=== PATIENT | female | born 1985 | race Asian ===

== ENCOUNTER 2022-12-08 12:05 | Emergency (ER) | payer BC, SELFPAY ==
[2022-12-08 12:13] VITALS: BP 113/76; PULSE 103; RESP 18; TEMP 36.8; O2SAT 100; BMI 34.0
--- NOTE | 2022-12-08 12:49 | ED_ITS ---
HPI - General Adult General Date Seen: 12/08/22 Chief complaint: Sore Throat Stated complaint: needs throat swap Time Seen by Provider: 12/08/22 12:06 Source: patient and family Mode of arrival: ambulatory Limitations: no limitations History of Present Illness HPI narrative: Patient is a 37-year-old female presents here for evaluation of a sore throat and low-grade fevers she has had for the last 3-4 days, her fevers broke today and she is down now normal, she is still taking some acetaminophen, she has had trouble swallowing for couple days, able to drink fluids fine but solids have b een more of an issue. She also had some mild nausea and vomited up a couple times yesterday and the day before. Fever was was a high is 102. She presents here with her , who also has a sore throat. Denies any rashes, any significant cough, she is on no other medications, no known allergies. Related Data Previous Rx's Medication Instructions Recorded prednisone 20 mg tablet 20 mg PO BID #10 tabs 12/08/22 Allergies Allergy/AdvReac Type Severity Reaction Status Date / Time No Known Drug Allergies Allergy Verified 12/08/22 12:15 Review of Systems Status of ROS: Reports: 10 or more systems reviewed and unremarkable except as noted in History and below PFSH [facility] Social History Smoking Status: Never smoker Exam Narrative: Exam Narrative: On examination she has some mild redness of the throat, she has a very patent airway with no evidence of any abnormality. Uvula appears normal, lymphadenopathy 1 to 2+ bilaterally, her neck is supple absence of meningismus, her TMs are normal, with a little bit of serous otitis media. Chest is good air entry red bilaterally with no wheezes crackles noted, heart sounds are normal,abdomen is soft, no evidence of any tenderness on palpation, no organomegaly. Normal bowel sounds. skin reveals no petechiae rashes, Const: Vital Signs, click to edit/add: Vital Signs - 24 hr 12/08/22 12:13 Temperature 98.3 F Pulse Rate [Right Pulse Oximeter] 103 H Respiratory Rate 18 Blood Pressure [Ri ght Upper Arm] 113/76 Pulse Oximetry 100 Oxygen Delivery Me thod Room Air Documenting provider has reviewed patient's vital signs: yes Course Course Hospital Course: As I discussed with them we will treat with prednisone, for the sore throat if worsening any to be res seen, I discussed complications of prednisone with them, and this was sent to the pharmacy. Vital Signs Vital signs: Initial Vital Signs Temperature 98.3 F 12/08/22 12:13 Temperature Source Temporal Artery Scan 12/08/22 12:13 Pulse Rate 103 H 12/08/22 12:13 Respiratory Rate 18 12/08/22 12:13 Blood Pressure 113/76 12/08/22 12:13 Blood Pressure Mean 88 12/08/22 12:13 Blood Pressure Position Sitting 12/08/22 12:13 Pulse Oximetry 100 12/08/22 12:13 Oxygen Delivery Method Room Air 12/08/22 12:13 Vital Signs Temperature 98.3 F 12/08/22 12:13 Pulse Rate 103 H 12/08/22 12:13 Respiratory Rate 18 12/08/22 12:13 Blood Pressure 113/76 12/08/22 12:13 Pulse Oximetry 100 12/08/22 12:13 Oxygen Delivery Method Room Air 12/08/22 12:13 Temperature 98.3 F 12/08/22 12:13 Pulse Rate 103 H 12/08/22 12:13 Respiratory Rate 18 12/08/22 12:13 Blood Pressure 113/76 12/08/22 12:13 Pulse Oximetry 100 12/08/22 12:13 Oxygen Delivery Method Room Air 12/08/22 12:13 Medical Decision Making MDM Narrative Medical decision making narrative: Life-threatening differential diagnosis is include meningitis, encephalitis, pneumonia, intra-abdominal infection, bacteremia, other differential diagnosis include but are not limited to viral upper respiratory tract infection, strep, urinary tract infection, skin infection, osteomyelitis, influenza, fungal infections, diskitis, epidural abscess, or fever of unknown origin. Given what is going on, there was an illness going through the family, they would like to go home, I do not think this is unreasonable but I did warn them that if there is test come back positive we will have to call them, and potentially call in a medication. Given she looks very well I do not think this is unreasonable as she is nontoxic Lab Data Labs: Lab Results 12/08/22 12/08/22 12/08/22 Range/Units 12:21 12:40 13:03 SARS-CoV-2 (PCR) Negative SARS-CoV-2 (Negative) Monoscreen Negative (Negative) Influenza Type A (PCR) Negative PCR FLU A (Negative) Influenza Type B (PCR) Negative PCR FLU B (Negative) RSV (PCR) Negative PCR RSV (Negative) Group A Strep DNA NOT DETECTED (Not Detectd) Discharge Plan Discharge Clinical Impression: History of fever, Pharyngitis Condition: Stable Instructions: Pharyngitis (ED) Additional Instructions: We will call you if the labs are positive, just know that this may necessitate calling in a prescription, at a pharmacy that is open. Return if signs symptoms of worsening, I would continues Tylenol, and also salt water gargles and Chloraseptic. Prescriptions: New prednisone 20 mg tablet 20 mg PO BID Qty: 10 0RF Follow Up/Referrals: Sandy Cintron MD [Primary Care Provider] - Stand Alone Forms: [employer] Info Instructions
[2022-12-08 13:17] LABS: Mono Screen* Negative (Negative)
[2022-12-08 13:19] LABS: Strep A DNA Probe* NOT DETECTED (Not Detectd)
[2022-12-08 13:34] LABS: PCR FLU A Negative PCR FLU A (Negative); PCR FLU B Negative PCR FLU B (Negative); PCR RSV Negative PCR RSV (Negative)
[2022-12-08 13:36] LABS: SARS PCR* Negative SARS-CoV-2 (Negative)
--- NOTE | 2022-12-08 13:57 | ED.NURSE ---
pt called with results. informed of script sent to [facility]
== END 2022-12-08 13:05 | disposition home or self-care (01) ==
PROVIDERS: Emergency Provider Family Medicine; PCP Family Medicine
DX: J02.9 Acute pharyngitis, unspecified (principal)
CPT/HCPCS: 36415; 86308; 87631; 87651; 99283

== ENCOUNTER 2024-07-06 12:22 | Outpatient (CLI) | payer BC, SELFPAY ==
--- NOTE | 2024-07-06 12:15 | CRLHL7_ITS ---
For Patients: As a result of the Century Cures Act, medical imaging exams and procedure reports are released immediately into your electronic medical record. You may view this report before your referring provider. If you have questions, please contact your health care provider. INDICATION: First trimester dating and viability. TECHNIQUE: Ultrasound OB pelvis transvaginal. Real-time conklin-scale imaging of the pelvis was performed. COMPARISON: None. FINDINGS: Intrauterine gestation: Single. heart activity (bpm): 171 and regular. [place]-rump length: 1.8 cm. Estimated ultrasound age: 8 weeks 2 days. RAZIA by ultrasound: 02/13/2025. Yolk sac: Normal. Perigestational hemorrhage: Small subchorionic hemorrhage inferior to the gestational sac measuring 0.6 x 0.7 x 1.2 cm. Ovaries and adnexa: Unremarkable. Suspicious pelvic fluid collections: None. IMPRESSION: Single viable intrauterine measuring 8 weeks and 2 days with RAZIA by ultrasound 02/13/2025. Clinical dates are compatible with ultrasound dates. Small subchorionic hemorrhage inferior to the gestational sac measuring up to 1.2 cm. Dictated by Malathi Wood MD @ 07/07/2024 3:19:05 PM (Electronically Signed)
== END 2024-07-06 12:23 | disposition home or self-care (01) ==
LOC: US 12:23
PROVIDERS: PCP Family Medicine; Visit Provider Obstetrics & Gynecology
DX: Z34.91 Encounter for supervision of normal pregnancy, unspecified, first trimester (principal); O20.9 Hemorrhage in early pregnancy, unspecified; Z3A.08 8 weeks gestation of pregnancy
CPT/HCPCS: 76817

== ENCOUNTER 2024-07-06 14:05 | Outpatient (CLI) | payer BC, SELFPAY ==
[2024-07-06 15:51] LABS: Lab Add On Test New Spec Needed
[2024-07-06 19:55] LABS: Chlamydia DNA Amplified* NOT DETECTED (No Detected); GC DNA Amplified* NOT DETECTED (No Detected)
== END 2024-07-06 14:06 | disposition home or self-care (01) ==
PROVIDERS: PCP Family Medicine; Visit Provider Obstetrics & Gynecology
DX: Z34.91 Encounter for supervision of normal pregnancy, unspecified, first trimester (principal); O99.011 Anemia complicating pregnancy, first trimester; Z3A.08 8 weeks gestation of pregnancy
CPT/HCPCS: 82728; 83020; 83021; 85660; 86592; 86703; 86704; 86706; 86762; 86787; 86803; 86850; 86900; 86901; 87086; 87340; 87491; 87591